=== PATIENT | male | born 1955 | race Caucasian/White ===

== ENCOUNTER → 2019-08-27 | Outpatient (CLI) | payer OTHER ==
[~2019-08-27] MED LIST: BUPR150T2 PO; DULO60 PO; EZET10-40 PO; GUAI600T33 PO; IRBHYD150 PO; LEVSOD50 PO; MECL25 PO; METF500 PO; PIOG30 PO; TAMS.4ER PO; ZOLP10 PO
== END | disposition home or self-care (01) ==
LOC: LAB EV 15:02 → LAB SHORT 15:02 → LAB 15:02
DX: L02.11 Cutaneous abscess of neck (principal)
CPT/HCPCS: 87070; 87075; 87205

== ENCOUNTER 2022-05-19 09:33 | Day surgery (SDC) | payer MEDICARE, BC ==
[~2022-05-19] VITALS: Ht 188 cm; Wt 111.3 kg
[2022-05-19] MEDS ORDERED: METO25ER (09:49)
[2022-05-19] MEDS ORDERED: GLIP2.5ER (09:50)
[2022-05-19] MEDS ORDERED: TELM20 (09:50)
[2022-05-19] MEDS ORDERED: ESCI10 (09:50)
[2022-05-19] MEDS ORDERED: OMEP20ER (09:50)
[2022-05-19] MEDS ORDERED: ASPI81CH (09:51)
[2022-05-19] MEDS ORDERED: ROSU5 (09:51)
== END 2022-05-19 12:25 | disposition home or self-care (01) ==
LOC: ORSCSDS 09:33
PROVIDERS: Internal Medicine Gastroenterology
PROC: 0DJD8ZZ Inspection of Lower Intestinal Tract, Via Natural or Artificial Opening Endoscopic (ICD-10-PCS; principal; 2022-05-19 10:45)
DX: Z12.11 Encounter for screening for malignant neoplasm of colon (principal); K57.30 Diverticulosis of large intestine without perforation or abscess without bleeding; E11.9 Type 2 diabetes mellitus without complications; Z79.899 Other long term (current) drug therapy; Z79.82 Long term (current) use of aspirin; Z79.4 Long term (current) use of insulin; K21.9 Gastro-esophageal reflux disease without esophagitis
CPT/HCPCS: 82947; J2704; J7120